=== PATIENT | female | born 1980 | race Caucasian/White ===

== ENCOUNTER 2016-11-14 17:06 | Inpatient (IN) | payer BC, OTHER ==
[2016-11-14 17:27] VITALS: O2SAT 100
[2016-11-14] MEDS ORDERED: Lactated Ringer's 1,000 ML IV STA (17:54)
[2016-11-14 18:14] LABS: BASO # 0.1 K/uL (0.0-0.2); BASO % 0.6 % (0.0-2.0); EOS # 0.1 K/uL (0.0-0.7); EOS % 1.5 % (0.0-4.0); HEMATOCRIT 38.6 % (34.0-47.0); LYMPH # 1.6 K/uL (1.0-4.3); MEAN CELL VOLUME 88.4 fl (81.0-99.0); MEAN CORPUSCULAR HEMOGLOBIN 29.1 pg (27.0-31.0); MEAN CORPUSCULAR HGB CONC 32.9 g/dL (33.0-37.0); MEAN PLATELET VOLUME 10.8 fl (7.2-11.7); MONO # 0.8 K/uL (0.0-0.8); MONO % 8.2 % (0.0-10.0); NEUT # 6.9 K/uL (1.8-7.0); NEUT % 72.7 % (50.0-75.0); NRBC % 0.1 % (0.0-0.0); RED CELL DISTRIBUTION WIDTH 13.6 % (11.5-14.5); WHITE BLOOD COUNT 9.5 K/uL (4.8-10.8)
--- NOTE | 2016-11-14 18:28 | ED PDOC ---
HPI: General Adult Time Seen by Provider: 11/14/16 17:34 Chief Complaint (Nursing): GI Problem Chief Complaint (Provider): GI Problem History Per: Patient History/Exam Limitations: no limitations Onset/Duration Of Symptoms: Days Current Symptoms Are (Timing): Still Present Additional Complaint(s): 36 y/o female presents to the emergency department with a complaint of vomiting (non bilious non bloody) with for the last 3 weeks especially after she eats. Associated with lightheadedness, severe nausea, severe heartburn, chest pain, and one pelvic cramp. Patient reports she was treated lst week at [facility] and admitted x3 days for severe nauseam and vomiting; discharged with Pepcid, Reglan, and Zofran. Denies diarrhea, vaginal discharge , or urinary symptoms. Of note, patient is . Both her child were spontaneous delivery at full term. PMD: Dr. Linwood Bey [facility] Past Medical History Reviewed: Historical Data, Nursing Documentation, Vital Signs Vital Signs: Last Vital Signs Temp 98.5 F 11/14/16 17:25 Pulse 70 11/14/16 17:25 Resp 16 11/14/16 17:25 BP 137/60 11/14/16 17:25 Pulse Ox 100 11/14/16 19:15 - Medical History PMH: No Chronic Diseases - Surgical History Surgical History: No Surg Hx - Family History Family History: States: Diabetes (Mother), Hypertension (Father) - Social History Current smoker - smoking cessation education provided: No Alcohol: None Drugs: Denies - Allergies Allergies/Adverse Reactions: Allergies Allergy/AdvReac Type Severity Reaction Status Date / Time No Known Allergies Allergy Verified 11/14/16 17:27 Review of Systems ROS Statement: Except As Marked, All Systems Reviewed And Found Negative Constitutional: Negative for: Other (Lightheadedness) Cardiovascular: Positive for: Chest Pain (Caused by severe heartburn) Gastrointestinal: Positive for: Nausea (Severe), Vomiting. Negative for: Hematemesis Genitourinary Female: Positive for: Pelvic Pain (1 pelvic cramp). Negative for : Dysuria, Frequency, Incontinence, Hematuria, Vaginal Discharge Physical Exam - Reviewed Nursing Documentation Reviewed: Yes Vital Signs Reviewed: Yes - Physical Exam Appears: Positive for: Non-toxic, In Acute Distress (Acute gastrointestinal distress) Head Exam: Positive for: ATRAUMATIC, NORMOCEPHALIC Skin: Positive for: Normal Color, Warm, Dry ENT: Positive for: Normal ENT Inspection, Other (Tacky mucous membranes). Negative for: Pharyngeal Erythema Cardiovascular/Chest: Positive for: Regular Rate, Rhythm. Negative for: Murmur Respiratory: Positive for: Normal Breath Sounds. Negative for: Accessory Muscle Use, Respiratory Distress Gastrointestinal/Abdominal: Positive for: Normal Exam, Soft. Negative for: Tenderness Neurologic/Psych: Positive for: Alert, Oriented - Laboratory Results Result Diagrams: 11/14/16 18:00 11/14/16 18:00 - ECG O2 Sat by Pulse Oximetry: 100 (RA) Pulse Ox Interpretation: Normal Medical Decision Making Medical Decision Making: Time: 17:34 Initial impression: Hyperemesis Gravidarum Initial plan: --COMP Metabolic Panel --LACT ACID, Plasma Stat --Lipase Stat --Magnesium Stat --Phosphorous Stat --ED Urine Dipstick (POC) Stat --ED Urine (POC) --Dextrose 5% 1,000 ml IV 100 mls/hr --Pepcid 20 mg IVP --Lactated Ringers 1,000 ml IV 1,000 mls/hr --Regland 10 mg IVPB Stat --Zofran INJ 8 mg IV --IV Insertion --Revaluation Time: 18:47 --Spoke to Dr. Linwood Bey who advised to continue hydration and admission. --Admit to hospital for Hyperemesis gravidarum, IVF, and bowel rest Scribe Attestation: Documented by Magalys Torres, acting as a scribe for Anitha Galeano MD. Provider Scribe Attestation: All medical record entries made by the Scribe were at my direction and personally dictated by me. I have reviewed the chart and agree that the record accurately reflects my personal performance of the history, physical exam, medical decision making, and the department course for this patient. I have also personally directed, reviewed, and agree with the discharge instructions and disposition. Disposition - Clinical Impression Clinical Impression: Hyperemesis gravidarum Counseled Patient/Family Regarding: Studies Performed, Diagnosis - Disposition Disposition Time: 18:00 Condition: SERIOUS - Pt Status Changed To: Hospital Disposition Of: Inpatient - Admit Certification Admit to Inpatient:: After my assessment, the patient will require hospitalization for at least two midnights. This is because of the severity of symptoms shown, intensity of services needed, and/or the medical risk in this patient being treated as an outpatient. - POA Present On Arrival: None
[2016-11-14 18:33] LABS: BLOOD UREA NITROGEN 14 mg/dl (7-17); CHLORIDE 98 mmol/L (98-107); GFR AFRICAN-AMERICAN > 60; GLUCOSE,RANDOM 131 mg/dL (65-105); POTASSIUM 3.7 MMOL/L (3.6-5.0); SODIUM 137 mmol/l (132-148)
[2016-11-14 18:34] LABS: ALB/GLOB RATIO 1.4 (1.0-2.1); AST/SGOT 38 U/L (14-36); BILIRUBIN,TOTAL 0.3 mg/dl (0.2-1.3); CALCIUM 9.4 mg/dL (8.4-10.2); CARBON DIOXIDE 27 mmol/L (22-30); PHOSPHOROUS 3.7 mg/dl (2.5-4.5); TOTAL PROTEIN 8.1 G/DL (6.3-8.2)
[2016-11-14 18:35] LABS: ALKALINE PHOSPHATASE 66 U/L (38-126); ALT/SGPT 42 U/L (9-52); LIPASE 190 U/L (23-300)
[2016-11-14] MEDS: Dextrose 5%/Lactated Ringer's 1,000 ML IV SCH (21:30)
[2016-11-14 22:55] LABS: RBC URINE 2 /hpf (0-3); URINE BACTERIA OCC (<OCC); URINE BILIRUBIN NEGATIVE (NEGATIVE); URINE BLOOD NEGATIVE (NEGATIVE); URINE COLOR YELLOW (YELLOW); URINE GLUCOSE (UA) NEG (Normal); URINE KETONE NEGATIVE (NEGATIVE); URINE LEUKOCYTE ESTERASE LARGE Leu/uL (Negative); URINE PROTEIN NEGATIVE (NEGATIVE); URINE UROBILINOGEN 0.2-1.0 mg/dL (0.2-1.0); WBC URINE 18 /hpf (0-5)
--- NOTE | 2016-11-15 10:18 | CP.PCM.HP ---
History of Present Illness - History of Present Illness History of Present Illness: iup 9 weeks nausea and vomiting Present on Admission - Present on Admission Any Indicators Present on Admission: No - Notes: Notes:: wnl Review of Systems - Constitutional Constitutional: As Per HPI - EENT Eyes: As Per HPI Ears: As Per HPI - Breasts Breasts: As Per HPI - Cardiovascular Cardiovascular: As Per HPI - Respiratory Respiratory: As Per HPI - Gastrointestinal Gastrointestinal: As Per HPI - Genitourinary Genitourinary: As Per HPI - Reproductive: Female Reproductive:Female: As Per HPI - Menstruation Menstruation: As Per HPI - Musculoskeletal Musculoskeletal: As Per HPI - Integumentary Integumentary: As Per HPI - Neurological Neurological: As Per HPI - Psychiatric Psychiatric: As Per HPI - Endocrine Endocrine: As Per HPI Past Patient History - Past Medical History & Family History Past Medical History?: Yes - Past Social History Alcohol: None Drugs: Denies - CARDIAC Hx Cardiac Disorders: No Hx Angina: No Hx Atrial Fibrillation: No Hx Cardia Arrhythmia: No Hx Circulatory Problems: No Hx Congestive Heart Failure: No Hx Heart Attack: No Hx Heart Murmur: No Hx Heart Transplant: No Hx Hypercholesterolemia: No Hx Hypertension: No Hx Hypotension: No Hx Internal Defibrillator: No Hx Mitral Valve Prolapse: No Hx Pacemaker: No Hx Peripheral Edema: No Hx Peripheral Vascular Disease: No - PULMONARY Hx Respiratory Disorders: No Hx Asthma: No Hx Bronchitis: No Hx Chronic Obstructive Pulmonary Disease (COPD): No Hx Emphysema: No Hx Lung Cancer: No Hx Pneumonia: No Hx Pulmonary Edema: No Hx Pulmonary Embolism: No Hx Respiratory Aspiration: No Hx Respiratory Tract Infection: No Hx Sleep Apnea: No Hx Tuberculosis: No - NEUROLOGICAL Hx Neurological Disorder: No Hx Alzheimer's Disease: No HX Cerebrovascular Accident: No Hx Dementia: No Hx Dizziness: No Hx Meningitis: No Hx Migraine: No Hx Multiple Sclerosis: No Hx Paralysis: No Hx Parkinson's Disease: No Hx Seizures: No Hx Syncope: No Hx Transient Ischemic Attacks (TIA): No Hx Vertigo: No - HEENT Hx HEENT Problems: No Hx Blind: No Hx Cataracts: No Hx Deafness: No Hx Difficulty Chewing: No Hx Epistaxis: No Hx Glaucoma: No Hx Macular Degeneration: No Hx Sinusitis: No - RENAL Hx Chronic Kidney Disease: No Hx Dialysis: No Hx Kidney Stones: No Hx Neurogenic Bladder: No Hx Pyelonephritis: No Hx Renal (Kidney) Cancer: No Hx Renal Failure: No - ENDOCRINE/METABOLIC Hx Endocrine Disorders: No Hx Adrenal Cancer: No Hx Diabetes Insipidus: No Hx Diabetes Mellitus Type 1: No Hx Diabetes Mellitus Type 2: No Hx Hyperthyroidism: No Hx Hypothyroidism: No Hx Systemic Lupus Erythematosus: No - HEMATOLOGICAL/ONCOLOGICAL Hx Blood Disorders: No Hx AIDS: No Hx Anemia: No Hx Blood Transfusions: No Hx Blood Transfusion Reaction: No Hx Bruising: No Hx Cancer: No Hx Chemotherapy: No Hx Cirrhosis: No Hx Gum Bleeding: No Hx Hemophilia: No Hx Hepatitis A: No Hx Hepatitis B: No Hx Hepatitis C: No Hx Human Immunodeficiency Virus (HIV): No Hx Leukemia: No Hx Metastesis: No Hx Shingles: No Hx Sickle Cell Disease: No Hx Unexplained Bleeding: No Hx von Willebrand's Disease: No - INTEGUMENTARY Hx Dermatological Problems: No Hx Basil Cell: No Hx Cruz: No Hx Cellulitis: No Hx Eczema: No Hx Melanoma: No Hx Psoriasis: No Hx Squamous Cell: No - MUSCULOSKELETAL/RHEUMATOLOGICAL Hx Musculoskeletal Disorders: No Hx Arthritis: No Hx Back Pain: No Hx Degenerative Joint Disease: No Hx Falls: No Hx Fractures: No Hx Gout: No Hx Herniated Disk: No Hx Myasthenia Gravis: No Hx Osteoarthritis: No Hx Osteomyelitis: No Hx Osteoporosis: No Hx Rhabdomyolysis: No Hx Rheumatoid Arthritis: No Hx Spinal Stenosis: No Hx Unsteady Gait: No - GASTROINTESTINAL Hx Gastrointestinal Disorders: Yes Hx Bowel Surgery: No Hx Clostridium Difficile: No Hx Colitis: No Hx Colostomy: No Hx Constipation: Yes Hx Crohn's Disease: No Hx Diarrhea: No Hx Diverticulitis: No Hx Esophageal Varices: No Hx Fatty Liver Disease: No Hx Gall Bladder Disease: No Hx Gastritis: No Hx Gastroesophageal Reflux: No Hx Hemorrhoids: No Hx Ileostomy: No Hx Irritable Bowel: No Hx Liver Failure: No Hx Nausea: Yes Hx Pancreatitis: No HX Swallowing Problems: No Hx Ulcer: Yes Hx Vomiting: No - GENITOURINARY/GYNECOLOGICAL Hx Genitourinary Disorders: Yes Hx Bladder Cancer: No Hx Bladder Stone: No Hx Cervical Cancer: No Hx Hematuria: No Hx Incontinence: No Hx Ovarian Cancer: No Hx Postmenopausal Bleeding: No Hx Reproductive Disorders: No Hx Sexually Transmitted Disorders: No Hx Uterine Cancer: No Hx Urinary Tract Infection: Yes - PSYCHIATRIC Hx Psychophysiologic Disorder: No Hx Anxiety: No Hx Bipolar Disorder: No Hx Depression: No Hx Emotional Abuse: No Hx Hallucinations: No Hx Panic Symptoms: No Hx Paranoia: No Hx Post Traumatic Stress Disorder: No Hx Psychosis: No Hx Physical Abuse: No Hx Schizophrenia: No Hx Sexual Abuse: No Hx Substance Use: No - SURGICAL HISTORY Hx Surgeries: No Hx Abdominal Aortic Aneurysm Repair: No Hx Amputation: No Hx Angiogram: No Hx Angioplasty: No Hx Appendectomy: No Hx Arteriovenous Shunt: No Hx Arthroscopy: No Hx Bile Duct Stent: No Hx Breast Biopsy: Yes Hx Cataract Extraction: No Hx Cardiac Catheterization: No Hx Carotid Endarterectomy: No Hx Section: No Hx Cholecystectomy: No Hx Coronary Artery Bypass Graft: No Hx Coronary Stent: No Hx Dilation and Curettage: No Hx Eye Surgery: No Hx Femoral-Popliteal Bypass Graft: No Hx Gastric Bypass Surgery: No Hx Herniorrhaphy: No Hx Hysterectomy: No Hx Joint Replacement: No Hx Kidney Transplant: No Hx Liver Transplant: No Hx Mastectomy: No Hx Musculoskeletal Surgery: No Hx Open Heart Surgery: No Hx Open Reduction Internal Fixation: No Hx Orthopedic Surgery: No Hx Parathyroidectomy: No Hx Penile Implant: No Hx Pulmonary Surgery: No Hx Splenectomy: No Hx Thyroidectomy: No Hx Tonsillectomy: No Hx Tubal Ligation: No Hx Valve Replacement: No Hx Vascular Surgery: No Hx Vascular Access Device: No Other/Comment: Benign mass removal from left breast in 2005 - ANESTHESIA Hx Anesthesia: No Hx Anesthesia Reactions: No Hx Malignant Hyperthermia: No Has any member of the family had a problem w/ anesthesia?: No Meds Allergies/Adverse Reactions: Allergies Allergy/AdvReac Type Severity Reaction Status Date / Time No Known Allergies Allergy Verified 11/14/16 17:27 Results - Vital Signs Recent Vital Signs: Last Vital Signs Temp 198.2 F H 11/15/16 05:29 Pulse 82 11/15/16 05:29 Resp 18 11/15/16 05:29 BP 109/60 11/15/16 05:29 Pulse Ox 100 11/14/16 19:49 - Labs Result Diagrams: 11/14/16 18:00 11/14/16 18:00 Labs: Laboratory Results - last 24 hr 11/14/16 21:43 Urine Color Yellow Urine Clarity Slighty-cloudy Urine pH 6.0 Ur Specific [place] 1.024 Urine Protein Negative Urine Glucose (UA) Neg Urine Ketones Negative Urine Blood Negative Urine Nitrate Negative Urine Bilirubin Negative Urine Urobilinogen 0.2-1.0 Ur Leukocyte Esterase Large Urine RBC (Auto) 2 Urine Microscopic WBC 18 H Ur Squamous Epith Cells 7 H Urine Bacteria Occ H
--- NOTE | 2016-11-15 10:22 | CP.PCM.PN ---
Subjective - Date & Time of Evaluation Date of Evaluation: 11/15/16 Time of Evaluation: 10:20 - Subjective Subjective: continue present car Objective - Vital Signs/Intake and Output Vital Signs (last 24 hours): Temp Pulse Resp BP Pulse Ox 198.2 F H 82 18 109/60 100 11/15/16 05:29 11/15/16 05:29 11/15/16 05:29 11/15/16 05:29 11/14/16 19:49 - Medications Medications: Current Medications Famotidine (Pepcid) 20 mg IVP Q12@0600,1800 [facility] Last Admin: 11/15/16 05:58 Dose: 20 mg Dextrose/Lactated Ringer's (Dextrose 5%/Lactated Ringer's) 1,000 mls @ 100 mls/ hr IV .Q10H [facility] Last Admin: 11/14/16 21:30 Dose: 100 mls/hr Metoclopramide HCl (Reglan) 10 mg IVP Q8@0400,1200,2000 [facility] Last Admin: 11/15/16 04:00 Dose: 10 mg Ondansetron HCl (Zofran Inj) 8 mg IVP Q8H [facility] Last Admin: 11/15/16 02:19 Dose: 8 mg - Eye Exam Additional comments: v.s stable afebrile Assessment and Plan - Assessment and Plan (Free Text) Assessment: continue present care nausea and vomiting at 9weeks Plan: increase diet as tolerated
[2016-11-15] MEDS: Dextrose 5%/Lactated Ringer's 1,000 ML IV SCH (14:00)
[2016-11-16] MEDS: Dextrose 5%/Lactated Ringer's 1,000 ML IV SCH ×2 (02:30→10:05)
--- NOTE | 2016-11-16 08:36 | CP.PCM.PN ---
Subjective - Date & Time of Evaluation Date of Evaluation: 11/16/16 Time of Evaluation: 10:00 - Subjective Subjective: feels better today tolerating regular diet Objective - Vital Signs/Intake and Output Vital Signs (last 24 hours): Temp Pulse Resp BP Pulse Ox 98.7 F 62 18 100/58 L 100 11/15/16 09:00 11/15/16 09:00 11/15/16 09:00 11/15/16 09:00 11/14/16 19:49 - Medications Medications: Current Medications Famotidine (Pepcid) 20 mg IVP Q12@0600,1800 [facility] Last Admin: 11/16/16 06:13 Dose: 20 mg Dextrose/Lactated Ringer's (Dextrose 5%/Lactated Ringer's) 1,000 mls @ 100 mls/ hr IV .Q10H [facility] Last Admin: 11/16/16 02:30 Dose: 100 mls/hr Metoclopramide HCl (Reglan) 10 mg IVP Q8@0400,1200,2000 [facility] Last Admin: 11/16/16 04:55 Dose: 10 mg Ondansetron HCl (Zofran Inj) 8 mg IVP Q8H [facility] Last Admin: 11/16/16 02:20 Dose: 8 mg - Eye Exam Additional comments: v.s stable afebrile tolerating regular Assessment and Plan - Assessment and Plan (Free Text) Assessment: nausea and vomiting improving Plan: dc home today rto 1weeks call office if any problems
--- NOTE | 2016-11-16 08:57 | CP.PCM.DIS ---
Provider - Provider Date of Admission: 11/14/16 18:59 Attending physician: Linwood Bey MD Time Spent in preparation of Discharge (in minutes): 20 Hospital Course - Lab Results Lab Results: Most Recent Lab Values WBC 9.5 K/uL (4.8-10.8) 11/14/16 18:00 RBC 4.37 Mil/uL (3.80-5.20) 11/14/16 18:00 Hgb 12.7 g/dL (12.0-16.0) 11/14/16 18:00 Hct 38.6 % (34.0-47.0) 11/14/16 18:00 MCV 88.4 fl (81.0-99.0) 11/14/16 18:00 MCH 29.1 pg (27.0-31.0) 11/14/16 18:00 MCHC 32.9 g/dL (33.0-37.0) L 11/14/16 18:00 RDW 13.6 % (11.5-14.5) 11/14/16 18:00 Plt Count 203 K/uL (130-400) 11/14/16 18:00 MPV 10.8 fl (7.2-11.7) 11/14/16 18:00 Neut % (Auto) 72.7 % (50.0-75.0) 11/14/16 18:00 Lymph % (Auto) 17.0 % (20.0-40.0) L 11/14/16 18:00 [place] % (Auto) 8.2 % (0.0-10.0) 11/14/16 18:00 Eos % (Auto) 1.5 % (0.0-4.0) 11/14/16 18:00 Baso % (Auto) 0.6 % (0.0-2.0) 11/14/16 18:00 Neut # 6.9 K/uL (1.8-7.0) 11/14/16 18:00 Lymph # 1.6 K/uL (1.0-4.3) 11/14/16 18:00 [place] # 0.8 K/uL (0.0-0.8) 11/14/16 18:00 Eos # 0.1 K/uL (0.0-0.7) 11/14/16 18:00 Baso # 0.1 K/uL (0.0-0.2) 11/14/16 18:00 Sodium 137 mmol/l (132-148) 11/14/16 18:00 Potassium 3.7 MMOL/L (3.6-5.0) 11/14/16 18:00 Chloride 98 mmol/L (98-107) 11/14/16 18:00 Carbon Dioxide 27 mmol/L (22-30) 11/14/16 18:00 Anion Gap 16 (10-20) 11/14/16 18:00 BUN 14 mg/dl (7-17) 11/14/16 18:00 Creatinine 0.6 mg/dL (0.7-1.2) L 11/14/16 18:00 Est GFR ( Amer) > 60 11/14/16 18:00 Est GFR (Non-Af Amer) > 60 11/14/16 18:00 Random Glucose 131 mg/dL (65-105) H 11/14/16 18:00 Lactic Acid 2.2 MMOL/L (0.7-2.1) H 11/14/16 18:00 Calcium 9.4 mg/dL (8.4-10.2) 11/14/16 18:00 Phosphorus 3.7 mg/dl (2.5-4.5) 11/14/16 18:00 Magnesium 2.0 MG/DL (1.6-2.3) 11/14/16 18:00 Total Bilirubin 0.3 mg/dl (0.2-1.3) 11/14/16 18:00 AST 38 U/L (14-36) H 11/14/16 18:00 ALT 42 U/L (9-52) 11/14/16 18:00 Alkaline Phosphatase 66 U/L (38-126) 11/14/16 18:00 Total Protein 8.1 G/DL (6.3-8.2) 11/14/16 18:00 Albumin 4.7 g/dL (3.5-5.0) 11/14/16 18:00 Globulin 3.4 gm/dL (2.2-3.9) 11/14/16 18:00 Albumin/Globulin Ratio 1.4 (1.0-2.1) 11/14/16 18:00 Lipase 190 U/L (23-300) 11/14/16 18:00 Urine Color Yellow (YELLOW) 11/14/16 21:43 Urine Clarity Slighty-cloudy (Clear) 11/14/16 21:43 Urine pH 6.0 (5.0-8.0) 11/14/16 21:43 Ur Specific [place] 1.024 (1.003-1.030) 11/14/16 21:43 Urine Protein Negative mg/dL (NEGATIVE) 11/14/16 21:43 Urine Glucose (UA) Neg mg/dL (Normal) 11/14/16 21:43 Urine Ketones Negative mg/dL (NEGATIVE) 11/14/16 21:43 Urine Blood Negative (NEGATIVE) 11/14/16 21:43 Urine Nitrate Negative (NEGATIVE) 11/14/16 21:43 Urine Bilirubin Negative (NEGATIVE) 11/14/16 21:43 Urine Urobilinogen 0.2-1.0 mg/dL (0.2-1.0) 11/14/16 21:43 Ur Leukocyte Esterase Large Dm/uL (Negative) 11/14/16 21:43 Urine RBC (Auto) 2 /hpf (0-3) 11/14/16 21:43 Urine Microscopic WBC 18 /hpf (0-5) H 11/14/16 21:43 Ur Squamous Epith Cells 7 /hpf (0-5) H 11/14/16 21:43 Urine Bacteria Occ (<OCC) H 11/14/16 21:43 - Hospital Course Hospital Course: uneventful course Discharge Exam - Head Exam Head Exam: ATRAUMATIC, NORMOCEPHALIC - Respiratory Exam Additional comments: v.s stable afebrile tolerating regular diet Discharge Plan - Follow Up Plan Condition: SERIOUS Disposition: HOME/ ROUTINE Instructions: Morning Sickness (DC), Hyperemesis Gravidarum (DC) Additional Instructions: call office if any problems
--- NOTE | 2016-11-16 09:00 | CP.PCM.DIS ---
Provider - Provider Date of Admission: 11/14/16 18:59 Attending physician: Linwood Bey MD Time Spent in preparation of Discharge (in minutes): 20 Hospital Course - Lab Results Lab Results: Most Recent Lab Values WBC 9.5 K/uL (4.8-10.8) 11/14/16 18:00 RBC 4.37 Mil/uL (3.80-5.20) 11/14/16 18:00 Hgb 12.7 g/dL (12.0-16.0) 11/14/16 18:00 Hct 38.6 % (34.0-47.0) 11/14/16 18:00 MCV 88.4 fl (81.0-99.0) 11/14/16 18:00 MCH 29.1 pg (27.0-31.0) 11/14/16 18:00 MCHC 32.9 g/dL (33.0-37.0) L 11/14/16 18:00 RDW 13.6 % (11.5-14.5) 11/14/16 18:00 Plt Count 203 K/uL (130-400) 11/14/16 18:00 MPV 10.8 fl (7.2-11.7) 11/14/16 18:00 Neut % (Auto) 72.7 % (50.0-75.0) 11/14/16 18:00 Lymph % (Auto) 17.0 % (20.0-40.0) L 11/14/16 18:00 [place] % (Auto) 8.2 % (0.0-10.0) 11/14/16 18:00 Eos % (Auto) 1.5 % (0.0-4.0) 11/14/16 18:00 Baso % (Auto) 0.6 % (0.0-2.0) 11/14/16 18:00 Neut # 6.9 K/uL (1.8-7.0) 11/14/16 18:00 Lymph # 1.6 K/uL (1.0-4.3) 11/14/16 18:00 [place] # 0.8 K/uL (0.0-0.8) 11/14/16 18:00 Eos # 0.1 K/uL (0.0-0.7) 11/14/16 18:00 Baso # 0.1 K/uL (0.0-0.2) 11/14/16 18:00 Sodium 137 mmol/l (132-148) 11/14/16 18:00 Potassium 3.7 MMOL/L (3.6-5.0) 11/14/16 18:00 Chloride 98 mmol/L (98-107) 11/14/16 18:00 Carbon Dioxide 27 mmol/L (22-30) 11/14/16 18:00 Anion Gap 16 (10-20) 11/14/16 18:00 BUN 14 mg/dl (7-17) 11/14/16 18:00 Creatinine 0.6 mg/dL (0.7-1.2) L 11/14/16 18:00 Est GFR ( Amer) > 60 11/14/16 18:00 Est GFR (Non-Af Amer) > 60 11/14/16 18:00 Random Glucose 131 mg/dL (65-105) H 11/14/16 18:00 Lactic Acid 2.2 MMOL/L (0.7-2.1) H 11/14/16 18:00 Calcium 9.4 mg/dL (8.4-10.2) 11/14/16 18:00 Phosphorus 3.7 mg/dl (2.5-4.5) 11/14/16 18:00 Magnesium 2.0 MG/DL (1.6-2.3) 11/14/16 18:00 Total Bilirubin 0.3 mg/dl (0.2-1.3) 11/14/16 18:00 AST 38 U/L (14-36) H 11/14/16 18:00 ALT 42 U/L (9-52) 11/14/16 18:00 Alkaline Phosphatase 66 U/L (38-126) 11/14/16 18:00 Total Protein 8.1 G/DL (6.3-8.2) 11/14/16 18:00 Albumin 4.7 g/dL (3.5-5.0) 11/14/16 18:00 Globulin 3.4 gm/dL (2.2-3.9) 11/14/16 18:00 Albumin/Globulin Ratio 1.4 (1.0-2.1) 11/14/16 18:00 Lipase 190 U/L (23-300) 11/14/16 18:00 Urine Color Yellow (YELLOW) 11/14/16 21:43 Urine Clarity Slighty-cloudy (Clear) 11/14/16 21:43 Urine pH 6.0 (5.0-8.0) 11/14/16 21:43 Ur Specific [place] 1.024 (1.003-1.030) 11/14/16 21:43 Urine Protein Negative mg/dL (NEGATIVE) 11/14/16 21:43 Urine Glucose (UA) Neg mg/dL (Normal) 11/14/16 21:43 Urine Ketones Negative mg/dL (NEGATIVE) 11/14/16 21:43 Urine Blood Negative (NEGATIVE) 11/14/16 21:43 Urine Nitrate Negative (NEGATIVE) 11/14/16 21:43 Urine Bilirubin Negative (NEGATIVE) 11/14/16 21:43 Urine Urobilinogen 0.2-1.0 mg/dL (0.2-1.0) 11/14/16 21:43 Ur Leukocyte Esterase Large Dm/uL (Negative) 11/14/16 21:43 Urine RBC (Auto) 2 /hpf (0-3) 11/14/16 21:43 Urine Microscopic WBC 18 /hpf (0-5) H 11/14/16 21:43 Ur Squamous Epith Cells 7 /hpf (0-5) H 11/14/16 21:43 Urine Bacteria Occ (<OCC) H 11/14/16 21:43 Discharge Exam - Head Exam Head Exam: ATRAUMATIC, NORMOCEPHALIC Discharge Plan - Follow Up Plan Condition: SERIOUS Disposition: HOME/ ROUTINE Instructions: Morning Sickness (DC), Hyperemesis Gravidarum (DC) Additional Instructions: call office if any problems
[2016-11-16 09:21] VITALS: BP 108/66; PULSE 61; RESP 19; TEMP 98.8
== END 2016-11-16 13:50 | disposition home or self-care (01) | DRG 886 ==
LOC: H.ER 17:06 → H.ERHOLD 18:59 → H.OB/GYN 20:47
PROVIDERS: ADMIT Specialist; ATTEND Specialist
DX: O21.0 Mild hyperemesis gravidarum (principal); Z3A.09 9 weeks gestation of pregnancy

== ENCOUNTER 2017-06-10 00:52 | Inpatient (IN) | payer MEDICAID, OTHER ==
[2017-06-10 01:26] VITALS: BMI 34.4
[2017-06-10] MEDS ORDERED: Penicillin G Potassium 5 MU in Sodium Chloride 0.9% 50 ML IVPB ONE (01:27)
--- NOTE | 2017-06-10 01:33 | OBHP ---
Datetime: 06/10/2017 01:19 IP Adm Impression: Term, intrauterine ; Active labor; Intact Membranes IP Admit Plan: Admit to unit; Initiate labor protocol Admit Comment, IP Provider: 36yo IUP 38w c/o CTX no VB +FMN; no SROM PNC: dr Bey...chart rev'd GBS+ November 2016 PMH: denies PSH: L breast mass removed NKA POBH: x2 A: IUP at 38w active pahse of labor HX GBS+ PLAN: admit to L_D IV Ab labs pain management, labor, delivrey and discussed Dr Bey contacted and aware Pelvic Type - PN: Adequate Extremities - PN: Normal Abdomen - PN: Normal Back - PN: Normal Breast - PN: Not Done Lungs - PN: Normal Heart - PN: Normal Thyroid - PN: Normal Neurologic - PN: Normal HEENT - PN: Normal General - PN: Normal IP Hx Assessment: The History has been Reviewed and is Current IP Chief Complaint: Uterine contractions FHR Category Provider Fetus A: Category I Dilatation, Provider: 5-6 Genitourinary Exam: Normal DTRs - PN: Normal
[2017-06-10] MEDS: Lactated Ringer's 1,000 ML IV SCH ×2 (02:00→03:03)
[2017-06-10 02:04] LABS: BASO # 0.1 K/uL (0.0-0.2); BASO % 0.5 % (0.0-2.0); EOS # 0.1 K/uL (0.0-0.7); EOS % 0.6 % (0.0-4.0); HEMATOCRIT 37.3 % (34.0-47.0); LYMPH # 1.8 K/uL (1.0-4.3); LYMPH % 13.8 % (20.0-40.0); MEAN CELL VOLUME 83.8 fl (81.0-99.0); MEAN CORPUSCULAR HEMOGLOBIN 26.9 pg (27.0-31.0); MEAN CORPUSCULAR HGB CONC 32.1 g/dL (33.0-37.0); MEAN PLATELET VOLUME 10.3 fl (7.2-11.7); MONO # 1.3 K/uL (0.0-0.8); NEUT % 75.1 % (50.0-75.0); NRBC % 0.1 % (0.0-0.0); RED CELL DISTRIBUTION WIDTH 14.8 % (11.5-14.5); WHITE BLOOD COUNT 13.3 K/uL (4.8-10.8)
[2017-06-10] MEDS ORDERED: Oxytocin 30 UNITS in Sodium Chloride 0.9% 500 ML IV ONE (02:18)
--- NOTE | 2017-06-10 02:51 | OBHP ---
Datetime: 06/10/2017 01:19 Admit Comment, IP Provider: 36yo IUP 38w c/o CTX no VB +FM; no SROM PNC: dr Bey...chart rev'd GBS+ November 2016 PMH: denies PSH: L breast mass removed NKA POBH: x2 A: IUP at 38w active pahse of labor HX GBS+ PLAN: admit to L_D IV Ab labs pain management, labor, delivrey and discussed Dr Bey contacted and aware Presentation-Admit: Vertex FHR - Baseline A Provider: 140 Membranes, Provider: Intact Pool Provider: Negative Vital Signs Provider: Reviewed; Within Normal Limits NICHD Variability Prov Fetus A: Moderate 6-25bpm NICHD Accel Fetus A IP Provider: 15X15 NICHD Decel Fetus A IP Provider: None
--- NOTE | 2017-06-10 02:52 | OBADHP ---
Datetime: 06/10/2017 01:19 Admit Comment, IP Provider: 36yo IUP 38w c/o CTX no VB +FM; no SROM PNC: dr Bey...chart rev'd GBS+ November 2016 PMH: denies PSH: L breast mass removed NKA POBH: x2 A: IUP at 38w active pahse of labor HX GBS+ PLAN: admit to L_D IV Ab labs pain management, labor, delivrey and discussed Dr Bey contacted and aware Pelvic Type - PN: Adequate Extremities - PN: Normal Abdomen - PN: Normal Back - PN: Normal Breast - PN: Not Done Lungs - PN: Normal Heart - PN: Normal Thyroid - PN: Normal Neurologic - PN: Normal HEENT - PN: Normal General - PN: Normal Presentation-Admit: Vertex FHR - Baseline A Provider: 140 Membranes, Provider: Intact Pool Provider: Negative IP Hx Assessment: The History has been Reviewed and is Current Vital Signs Provider: Reviewed; Within Normal Limits IP Chief Complaint: Uterine contractions NICHD Variability Prov Fetus A: Moderate 6-25bpm NICHD Accel Fetus A IP Provider: [id number] FHR Category Provider Fetus A: Category I NICHD Decel Fetus A IP Provider: None Dilatation, Provider: 5-6 Genitourinary Exam: Normal DTRs - PN: Normal IP Adm Impression: Term, intrauterine ; Active labor; Intact Membranes IP Admit Plan: Admit to unit; Initiate labor protocol
[2017-06-10] MEDS ORDERED: Fentanyl/Bupivacaine HCl 250 ML EPI ONE (03:02)
[2017-06-10] MEDS ORDERED: Bupivacaine HCl 0.25% PF (10 ml) Inj ONE (03:02)
[2017-06-10] MEDS ORDERED: Lactated Ringer's 1,000 ML IV SCH (07:00)
[2017-06-10] MEDS ORDERED: Oxycodone/Acetaminophen 5/325 mg Tab PO PRN (08:17)
--- NOTE | 2017-06-10 11:34 | OBDS ---
DELIVERY PERSONNEL Delivery Doctor: Bismark Coreas Motor Power Connector: Nereida Ochoa RN Resident: Elaine BAKER MATERNAL INFORMATION Delivery Anesthesia: Epidural Medications in Delivery: Pitocin Estimated Blood Loss (ml): 250 Placenta Cultured: No Maternal Complications: None RN Comments: Atraumatic delivery of viable babyboy with Lusty cry Patient had one emsis episiod e and infants head delivered itself followed by the body. One loose nuchol cord noted tolerate d delivery well. Skin to skin initiated immeditaely 9/9 APGARS noted. Mother and infant recoverying well. Provider Comments: [facility]...notiifed that she delivered in bed. PVT pt of Dr Shafer in. She was given epdirual after admissoin. SHe started to vomit and push out baby. Nurseds presen t and noted to have one loose nuchal cord. Infant was placed on mother's chest for skin to skin. Pe rinum intact/no laceration. Foely removed. Placenta delivereed intact spontaneously. EBL 200cc DYANA NDO LABOR SUMMARY EDC: 06/19/2017 00:00 No. Babies in Womb: 1 Attempted: No Labor Anesthesia: Epidural LABOR INFORMATION Reason for Induction: Not Applicable Onset of Labor: 06/10/2017 04:01 Complete Dilatation: 06/10/2017 07:59 Oxytocin: N/A Group B Beta Strep: Positive (Annotations: postve through urine test ) Steroids Given: None Reason Steroids Not Administered: Not Applicable MEMBRANES Membranes Rupture Method: Spontaneous Rupture of Membranes: 06/10/2017 07:58 Length of Rupture (hrs): 0.02 Amniotic Fluid Color: Clear Amniotic Fluid Amount: Moderate Amniotic Fluid Odor: Normal STAGES OF LABOR Stage 1 hrs: 3 Stage 1 min: 58 Stage 2 hrs: 0 Stage 2 min: 0 Stage 3 hrs: 0 Stage 3 min: 11 Total Time in Labor hrs: 4 Total Time in Labor min: 9 VAGINAL DELIVERY Episiotomy: None Laceration Extension: N/A Laceration Type: None Initial Vag Sponge Count: 5 Final Vag Sponge Count: 5 Sponge Count Correct: Yes Sharps Count Correct: N/A Count Comment: 5 lap pads BABY A INFORMATION Delivery Date/Time: 06/10/2017 07:59 Method of Delivery: Vaginal Born in Route : No : N/A Forceps: N/A Vacuum Extraction: N/A Shoulder Dystocia : No SHOULDER DYSTOCIA BABY A Delivery Date/Time: 06/10/2017 07:59 PRESENTATION/POSITION BABY A Presentation: Cephalic Cephalic Presentation: Vertex Vertex Position: Left Occipital Anterior Breech Presentation: N/A PLACENTA INFORMATION BABY A Placenta Delivery Time : 06/10/2017 08:10 Placenta Method of Delivery: Spontaneous Placenta Status: Delivered SCORES BABY A Heart Rate 1 min: >100 bpm Resp Effort 1 min: Good Cry Reflex Irritability 1 min: Cough or Sneeze or Pulls Away Muscle Tone 1 min: Active Motion Color 1 min: Body [place], Extremities Blue Resuscitation Effort 1 min: N/A SCORE 1 MIN: 9 Heart Rate 5 min: >100 bpm Resp Effort 5 min: Good Cry Reflex Irritability 5 min: Cough or Sneeze or Pulls Away Muscle Tone 5 min: Active Motion Color 5 min: Body [place], Extremities Blue Resuscitation Effort 5 min: N/A SCORE 5 MIN: 9 INFANT INFORMATION BABY A Gestational Age at Delivery: 38.5 Gestational Status: Term Infant Outcome : Liveborn Infant Condition : Stable Infant Sex: Male IDENTIFICATION/MEDS BABY A ID Band Number: [id number] ID Band Location: Right Leg; Right Arm Vitamin K Given : Aquamephyton 1 mg IM Erythromycin Given: Given Both Eyes WEIGHT/LENGTH BABY A Infant Birthweight (gms): 2975 Infant Weight (lb): 6 Infant Weight (oz): 9 Infant Length Inches: 20.00 Infant Length cms: 50.8 CORD INFORMATION BABY A No. Cord Vessels: 3 Nuchal Cord : Around Neck x1, Loose Cord Blood Taken: No Suction: Mouth; Nose ASSESSMENT BABY A Complications: None Physical Findings at Delivery: Within Normal Limits Infant Respirations: Appears Normal Nailing Machine Operator Automatic/ALS Called : No Infant Care By: Annette Ochoa Transferred To: Remains with Mother
[2017-06-11 08:04] LABS: HEMATOCRIT 30.3 % (34.0-47.0); MEAN CELL VOLUME 84.2 fl (81.0-99.0); MEAN CORPUSCULAR HEMOGLOBIN 27.2 pg (27.0-31.0); MEAN CORPUSCULAR HGB CONC 32.3 g/dL (33.0-37.0); RED CELL DISTRIBUTION WIDTH 15.3 % (11.5-14.5); WHITE BLOOD COUNT 14.5 K/uL (4.8-10.8)
--- NOTE | 2017-06-11 11:49 | OBPPN ---
Datetime: 06/11/2017 11:45 PP Pain Prov: Within normal limits PP Pain Prov comment: No SOB, chest pains or leg pain PP Nausea Prov: Denies PP Flatus Prov: Yes PP Breasts Prov: Normal PP Lungs Prov: Normal PP Abdomen/Uterus Prov: Abnormal PP Lochia Prov: Normal PP CVA Tenderness Prov: Normal PP Extremities Prov: Normal PP C/S Incision Prov: Not Applicable PP Progress Prov: Normal PP Comments Phys Exam Prov: breast not engorged, Abd soft, ND, fundus firm below the umb. Ext no ca lf tenderness PP Impression Prov: Normal progression PP Plan Prov: Continue present management PP Progress Note Prov: Continue PP care OOB and ambulation IP PP Procedures: None
--- NOTE | 2017-06-12 05:56 | OBPPN ---
Datetime: 06/12/2017 05:53 PP Pain Prov: Within normal limits PP Nausea Prov: Denies PP Flatus Prov: Yes PP Breasts Prov: Normal PP Heart Prov: Normal PP Lungs Prov: Normal PP Abdomen/Uterus Prov: Normal PP Lochia Prov: Normal PP Vulva/Perineum Prov: Normal PP CVA Tenderness Prov: Normal PP Extremities Prov: Normal PP Progress Prov: Normal PP Impression Prov: Normal progression PP Plan Prov: Continue present management PP Progress Note Prov: stable ppd2 dc home today IP PP Procedures: None Vital Signs Provider PP: Reviewed; Within Normal Limits
--- NOTE | 2017-06-12 05:58 | OBDCSUM ---
Datetime: 06/12/2017 05:55 Discharged to, Provider: Home Follow up at, Provider: Disch Instr Activity: Bedrest; May be up to bathroom; May be up for meals; May Shower Disch Instr Diet: Regular Discharge Instructions, Provider: Routine instructions given Discharge Time: 06/12/2017 05:55 Follow up in weeks, Provider: 5-6weeks in office Disch Referrals: None Disch Activity Restrictions: No exercising; No lifting; No driving; Minimize walking; Minimize stair -climbing; No sexual activity; Nothing in vagina - [place], tampons, douche Contraception after Delivery: Undecided
[2017-06-12] MEDS ORDERED: Benzocaine/Menthol (Cepacol) Lozenge PO ONE (10:40)
[2017-06-12] MEDS ORDERED: Measles, Mumps, and Rubella 0.5 ML VIAL SC ONE (11:21)
[2017-06-12 22:15] VITALS: BP 110/75; PULSE 80; RESP 20; TEMP 97.6; O2SAT 99
== END 2017-06-12 18:14 | disposition home or self-care (01) | DRG 372 ==
LOC: H.EROB2 00:52 → H.L&D 01:26 → H.OB/GYN 12:00
PROVIDERS: ADMIT Specialist; ATTEND Specialist
PROC: 10E0XZZ Delivery of Products of Conception, External Approach (ICD-10-PCS; principal; 2017-06-10)
PROC: 4A1HXCZ Monitoring of Products of Conception, Cardiac Rate, External Approach (ICD-10-PCS; 2017-06-10)
DX: O69.81X0 Labor and delivery complicated by cord around neck, without compression, not applicable or unspecified (principal); O99.42 Diseases of the circulatory system complicating childbirth; I47.2 Ventricular tachycardia; O99.824 Streptococcus B carrier state complicating childbirth; Z37.0 Single live birth; Z3A.38 38 weeks gestation of pregnancy